=== PATIENT | female | born 1985 | race Caucasian/White ===

== ENCOUNTER 2017-12-07 14:05 | Emergency (ER) | payer BC ==
[~2017-12-07] VITALS: Ht 170.2 cm; Wt 60.3 kg
[2017-12-07 14:39] VITALS: BP 107/69
[2017-12-07 14:58] VITALS: BP 96/66
[2017-12-07] MEDS ORDERED: Ketorolac 60mg Inj IM ONE (15:00)
--- NOTE | 2017-12-07 16:17 | Emergency Room Report ---
History of Present Illness General Chief Complaint: General Complaint Source: Patient, Medical Record Present Illness HPI 32 Y/O Female Presents to the ED C/O cough congestion 8/10 in severity body- aches, fevers, chills and progressive stiff low back and neck muscles with intermittent dull headaches x 1 week. She describes low back pain and sciatica radiating down the right posterior thigh. She is worried as she had viral meningitis 2 years ago but also had low back pain as well as neck pain. Denies photophobia. Reports taking one Flexeril this morning. Denies CP, Palpitations, LOC, AMS, dizziness, Changes in Vision, Sensation, paresthesias, or a sudden severe headache. Allergies: Coded Allergies: MORPHINE (Verified Allergy, Unknown, 12/07/17) Patient History Past Medical History: none Past Surgical History: none Pertinent Family History: none Last Menstrual Period: 11/20/17 Reviewed Nursing Documentation: PMH: Agreed, PSxH: Agreed Review of Systems All Other Systems: negative except mentioned in HPI Physical Exam Vital Signs Date Time Temp Pulse Resp B/P (MAP) Pulse Ox O2 Delivery O2 Flow Rate FiO2 12/07/17 14:08 98.8 104 18 107/69 99 Room Air Sp02 EP Interpretation: reviewed, normal General Appearance: no apparent distress, alert, GCS 15, non-toxic Head: normocephalic, atraumatic Eyes: bilateral eye normal inspection, bilateral eye PERRL, bilateral eye other - no photophobia ENT: hearing grossly normal, normal voice, TMs + canals normal, uvula midline, moist mucus membranes Neck: full range of motion, no meningismus, no bony tend Respiratory: chest non-tender, lungs clear, normal breath sounds, speaking full sentences Cardiovascular #1: regular rate, rhythm, normal capillary refill Gastrointestinal: normal bowel sounds, non tender, soft Rectal: deferred Genitourinary: normal inspection Musculoskeletal: back normal, gait/station normal, normal range of motion, non- tender Neurologic: alert, oriented x3, responsive, motor strength/tone normal, sensory intact, normal gait, speech normal, grossly normal Psychiatric: judgement/insight normal Skin: normal color, no rash, warm/dry, well hydrated Lymphatic: no adenopathy Medical Decision Making PA Attestation Dr. Strauss is my supervising Physician whom patient management has been discussed with. Diagnostic Impression: Primary Impression: Acute viral syndrome Additional Impressions: Sciatic nerve pain Qualified Codes: M54.31 - Sciatica, right side UTI (urinary tract infection) Qualified Codes: N30.00 - Acute cystitis without hematuria ER Course 32 Y/O Female Presents to the ED C/O cough congestion 8/10 in severity body- aches, fevers, chills and progressive stiff low back and neck muscles with intermittent dull headaches x 1 week. She describes low back pain and sciatica radiating down the right posterior thigh. She is worried as she had viral meningitis 2 years ago but also had low back pain as well as neck pain. Denies photophobia. Reports taking one Flexeril this morning. Denies CP, Palpitations, LOC, AMS, dizziness, Changes in Vision, Sensation, paresthesias, or a sudden severe headache. Ddx considered but are not limited to URI, pneumonia, PE, strep pharyngitis, meningitis. Vital signs: Pt. is afebrile, the remaining VS are WNL, Pt. non-toxic in appearance. H&PE are most consistent with URI- no meningeal signs photophobia, she has hx of multiple herniated discs and sciatica. ORDERS: -UA: Positive for UTI -Influenza Screen: NEGATIVE ED INTERVENTIONS: -Soma PO -I do not identify an emergent condition at this time. With current presentation , pt. is stable for close outpatient follow up and conservative treatment. D/ w pt. to return promptly to ED with worsening or new symptoms.- Pt. (and or responsible green party) verbalizes' understanding and agreement with proposed treatment plan.proposed treatment plan. DISCHARGE: At this time pt. is stable for d/c to home. Will provide printed patient care instructions, and any necessary prescriptions. Care plan and follow up instructions have been discussed with the patient prior to discharge. Labs Test 12/07/17 16:05 Urine Color Pale yellow Urine Appearance Slightly cloudy Urine pH 8 (4.5-8.0) Urine Specific [place] 1.010 (1.005-1.035) Urine Protein Negative (NEGATIVE) Urine Glucose (UA) Negative (NEGATIVE) Urine Ketones Negative (NEGATIVE) Urine Occult Blood Negative (NEGATIVE) Urine Nitrite Negative (NEGATIVE) Urine Bilirubin Negative (NEGATIVE) Urine Urobilinogen Normal MG/DL (0.0-1.0) Urine Leukocyte Esterase 1+ (NEGATIVE) Urine RBC 0-2 /HPF (0 - 2) Urine WBC 2-4 /HPF (0 - 2) Urine Squamous Epithelial Cells Many /LPF (NONE/OCC) Urine Bacteria Many /HPF (NONE) Last Vital Signs Date Time Temp Pulse Resp B/P (MAP) Pulse Ox O2 Delivery O2 Flow Rate FiO2 12/07/17 15:57 98.8 12/07/17 14:58 77 16 96/66 99 Room Air Disposition: HOME, SELF-CARE Condition: Stable Scripts Nitrofurantoin Monohyd/M-Cryst* (MACROBID 100 MG*) 100 Mg Capsule 100 MG ORAL EVERY 12 HOURS for 5 Days, #10 CAP Prov: Kaycee Balderrama P.A. 12/07/17 Oseltamivir Phosphate (Tamiflu) 75 Mg Capsule 75 MG ORAL TWICE A DAY for 5 Days, #10 CAP Prov: Kaycee Balderrama P.A. 12/07/17 Acetaminophen* (TYLENOL EXTRA STRENGTH*) 500 Mg Tablet 500 MG ORAL Q6H Y for Mild Pain/Temp > 100.5, #20 TAB 0 Refills Prov: Kaycee Balderrama P.A. 12/07/17 Ibuprofen* (MOTRIN*) 600 Mg Tablet 600 MG ORAL THREE TIMES A DAY, #30 TAB 0 Refills Prov: Kaycee Balderrama P.A. 12/07/17 Methocarbamol* (ROBAXIN-750*) 750 Mg Tablet 750 MG PO QID for 7 Days, #28 TAB 0 Refills Prov: Kaycee Balderrama P.A. 12/07/17 Referrals: NOT CHOSEN IPA/MD,REFERRING (PCP) Patient Instructions: Influenza Tests, Influenza, Adult, [id number], Sciatica , Urinary Tract Infection, [id number] Additional Instructions: Take medications as directed. Follow up with a Primary Care Provider in 3-5 days, even if your symptoms have resolved. --Please review list of primary care clinics, if you do not already have a primary care provider Return sooner to ED if new symptoms occur, or current symptoms become worse. Do not drink alcohol, drive, or operate heavy machinery while taking Muscle Relaxers as this may cause drowsiness. - Please note that this Emergency Department Report was dictated using [employer] aide technology software, occasionally this can lead to erroneous entry secondary to interpretation by the dictation equipment. Kaycee Balderrama Dec 07, 2017 16:17
[2017-12-07] MEDS ORDERED: TAMIFLU75 MG ORAL (16:19)
[2017-12-07] MEDS ORDERED: TYLENOL EXTRA500 MG ORAL (16:19)
[2017-12-07] MEDS ORDERED: IBUPROFEN600 MG ORAL (16:19)
[2017-12-07] MEDS ORDERED: ROBAXIN-750750 MG PO (16:19)
[2017-12-07 16:23] LABS: APPEARANCE,URINE SLIGHTLY CLOUDY; BILIRUBIN, URINE NEGATIVE (NEGATIVE); COLOR,URINE PALE YELLOW; GLUCOSE, URINE (UA) NEGATIVE (NEGATIVE); KETONES,URINE NEGATIVE (NEGATIVE); LEUKOCYTE ESTERASE ,URINE 1+ (NEGATIVE); NITRITE,URINE NEGATIVE (NEGATIVE); PH,URINE 8 (4.5-8.0); PROTEIN,URINE NEGATIVE (NEGATIVE); UROBILINOGEN,URINE NORMAL MG/DL (0.0-1.0)
[2017-12-07] MEDS ORDERED: NITROFURANTOIN100 M2 ORAL (16:44)
[2017-12-07 16:55] VITALS: BP 96/66
== END 2017-12-07 16:56 | disposition home or self-care (01) ==
LOC: EMR 14:59
DX: B34.9 Viral infection, unspecified (principal); M54.41 Lumbago with sciatica, right side; N39.0 Urinary tract infection, site not specified; Z88.6 Allergy status to analgesic agent
CPT/HCPCS: 81003; 86710; 87086; 96372; 99284